=== PATIENT | male | born 1965 | race Caucasian/White ===

== ENCOUNTER → 2019-06-16 | Outpatient (CLI) | payer OTHER, SELFPAY ==
--- NOTE | 2019-06-16 11:58 | COLBX_PTH ---
PATIENT: DALTON HERNANDEZ [facility] U#:[id number] AGE/SX: 54/M ROOM: RE06/16/[address]: Dr. Alberto Zhao MD : 1965 BED: DIS: 06/16/2019 SPEC #: [id number] RECD: 06/16/19 15:14 STATUS: SHELBY EHSAN #: [id number] TACHO: 06/16/19 11:[address]: Alberto Zhao DEPT: SURGICAL PATHOLOGY RECD BY: Perry Cardoso ENTERED: 06/17/19 09:38 SP TYPE: COLON BX OTHR DR: Dr. Satish Kendrick, [facility] Tissues: Right colon Procedures: Surgery Specimen Level IV HEADER OPERATION: Colonoscopy with polypectomy PRE-OP DIAGNOSIS: Screening colonoscopy Z12.11 TISSUE SUBMITTED: Polypectomy right colon, rule out adenoma MICROSCOPIC DIAGNOSIS Right colon polyp, biopsy: Fragments of villous adenoma. AM:lin 2/13/20 MICROSCOPIC DESCRIPTION Slides are reviewed. GROSS DESCRIPTION Received in fixative is one container labeled with the patient's name and designated right colon. The specimen consists of multiple irregular fragments of gage-pink soft tissue that in aggregate measure 3 x 2.5 x 0.3 cm. The entire specimen is submitted in one cassette. / SJ:rg 06/17/19 TC:5 CPT: [id number]
== END | disposition home or self-care (01) ==
LOC: LABSPEC 15:42
PROVIDERS: PCP Family Medicine; Referring Provider Internal Medicine Gastroenterology; Visit Provider Internal Medicine Gastroenterology
DX: Z12.11 Encounter for screening for malignant neoplasm of colon (principal); D37.4 Neoplasm of uncertain behavior of colon
CPT/HCPCS: 88305